=== PATIENT | male | born 1960 | race Caucasian/White ===

== ENCOUNTER 2019-05-03 16:28 | Inpatient (IN) | payer OTHER ==
--- NOTE | 2019-05-02 22:05 | NUR ---
RN NOTES PATIENT WAS SEEN BY OIL PIT ATTENDANTDANIELLA. AWAITING ADMISSION ORDERS.
[~2019-05-03] VITALS: Ht 165.1 cm; Wt 76.7 kg
--- NOTE | 2019-05-03 19:40 | NUR ---
COLLAR CLOSER LOCKSTITCH NOTES PATIENT ARRIVED ON THE UNIT AT 1933 VIA AMBULANCE AND GURNEY DIRECT TRANSFER FROM [facility]. PATIENT IS MED SURG ACUITY. DIAGNOSED WITH LEFT THUMB OSTEOMYELITIS. PATIENT REPORTS PAIN 5/10 ON LEFT THUMB, PATIENT NOT ASKING FOR PAIN MEDICATION AT THIS TIME. VITALS UPON ADMISSION ARE: BP 137/83, PULSE 74, RESPIRATIONS 20, TEMP 97.9 F, O2 SAT 98% ON RA. PATIENT IS A/O X4, MAINLY FAROESE SPEAKING, CAN SPEAK A LITTLE LAO. PATIENT IS FULLY AMBULATORY. SAFETY PRECAUTIONS IMPLEMENTED; CALL LIGHT WITHIN REACH, BED LOWEST POSITION, BED LOCKED, SIDE RAILS UP X2. WILL CONTINUE TO MONITOR PATIENT. AWAITING ADMISSION ORDERS FROM DANIELLA ONEILL.
[2019-05-03 20:00] VITALS: BP 137/83
--- NOTE | 2019-05-03 21:06 | NUR ---
RN NOTES PICC LINE WAS INSERTED BY PICC LINE SPECIALIST. ACCORDING TO SPECIALIST WHO INSERTED: RIGHT BASILIC 38 CM. AC 26 CM. CHEST XRAY CONFIRMED CORRECT PLACEMENT.
--- NOTE | 2019-05-03 21:07 | NUR ---
RN NOTES PICC LINE CRIME INVESTIGATOR SPECIAL AGENT WAS YFN PERES RN.
[2019-05-03] MEDS ORDERED: LORAZEPAM INJ 2 MG/ML VIAL IV PRN (22:00)
[2019-05-03] MEDS ORDERED: DEXTROSE 50%-WATER 50 ML DISP.SYRIN IV PRN (22:00)
[2019-05-03] MEDS ORDERED: ZOLPIDEM TARTRATE 5 MG TABLET PO PRN (22:00)
[2019-05-03] MEDS ORDERED: Z GUARD REMEDY 2 OZ OINT TP PRN (22:00)
[2019-05-03] MEDS ORDERED: MAGNESIUM HYDROXIDE 30 ML UDC PO PRN (22:00)
[2019-05-03] MEDS ORDERED: ACETAMINOPHEN 325 MG TABLET PO PRN (22:00)
[2019-05-03] MEDS ORDERED: ONDANSETRON HCL/PF 4 MG/2 ML VIAL IVP PRN (22:00)
[2019-05-03] MEDS ORDERED: VANCOMYCIN HCL 1.25 GM in IV D5W 260 ML IV ONE (22:00)
[2019-05-03] MEDS ORDERED: MORPHINE SULFATE INJ 2 MG/ML DISP.SYRIN IV PRN (22:00)
[2019-05-03] MEDS ORDERED: HYDROCODONE/APAP 5/325MG 1 EACH TABLET PO PRN (22:00)
[2019-05-03] MEDS ORDERED: MAG HYDROX/AL HYDROX/SIMETH 30 ML UDC PO PRN (22:00)
--- NOTE | 2019-05-03 22:05 | NUR ---
RN NOTES PATIENT WAS SEEN BY ASSISTANT PRODUCERDANIELLA. AWAITING ADMISSION ORDERS.
--- NOTE | 2019-05-03 22:06 | NUR ---
RN NOTES DISREGARD DOCUMENTATION FOR 05/02 2205. WRONG DATE INPUT.
[2019-05-03] MEDS: BLOOD SUGAR DIAGNOSTIC 1 EACH STRIP IN SCH (22:29)
[2019-05-03] MEDS: IV NS 0.9% 1,000 ML IV PRN (22:34)
[2019-05-03] MEDS: INSULIN REGULAR, HUMAN 100 UNIT/ML 3 ML VIAL SQ PRN (22:47)
[2019-05-03] MEDS ORDERED: VANCOMYCIN 1.75 GM in IV NS 0.9% 500 ML IV ONE (23:00)
[2019-05-03] MEDS ORDERED: VANCOMYCIN 1 GM VIAL ONE (23:06)
--- NOTE | 2019-05-03 23:10 | NUR ---
RN NOTES VANCO TO BE ADMINISTERED. VERIFIED WITH CHARGE NURSE, ADELINA, TO GIVE. CHARGE NURSE STATES TO ADMINISTER ALTHOUGH THERE IS NO VANCO TROUGH AT THIS TIME.
[2019-05-03] MEDS ORDERED: METF-440 PO (23:27)
[2019-05-03] MEDS ORDERED: LISI10TA5 PO (23:27)
[2019-05-03] MEDS ORDERED: ATOR40TA PO (23:28)
[2019-05-04] VITALS: BP 149/72
[2019-05-04 04:00] VITALS: BP 156/83
--- NOTE | 2019-05-04 06:36 | NUR ---
RN CLOSING NOTES PATIENT REMAINS STABLE. PATIENT IS CURRENTLY AWAKE, RESTING COMFORTABLY IN BED. PATIENT IS A/OX 4, ABLE TO STATE NEEDS. PATIENT REMAINS ON RA, SATTING WELL. NO SIGNS OF RESPIRATORY DISTRESS. DENIES SOB. PATIENT IS AFEBRILE. PATIENT IS ASYMPTOMATIC. PATIENT DID NOT ASK FOR PAIN MEDICATION THROUGHOUT THE SHIFT. IV SITES: LAC #20 AND GEMA PICC LINE INTACT, PATENT, FLUSHED, NO REDNESS, NO INFILTRATION. PATIENT FULLY AMBULATORY. SAFETY PRECAUTIONS IMPLEMENTED; CALL LIGHT WITHIN REACH, BED LOWEST POSITION, BED LOCKED, SIDE RAILS UP X2. WILL ENDORSE TO DAY RN FOR CONTINUITY OF CARE.
[2019-05-04 06:55] LABS: BASOPHILS # (AUTO) 0.1 /CMM (0.0-0.2); BASOPHILS % (AUTO) 1.1 % (0.0-2.0); EOSINOPHILS % (AUTO) 1.5 % (0.0-6.0); HEMATOCRIT 41 % (39-51); HEMOGLOBIN 13.8 g/dL (13.5-17.5); LYMPHOCYTES # (AUTO) 1.9 /CMM (0.8-4.8); LYMPHOCYTES % (AUTO) 26.4 % (20.0-44.0); MEAN CORPUSCULAR HGB CONC 34 g/dl (31.0-36.0); MEAN CORPUSCULAR VOLUME 87 fL (80-96); MONOCYTES # (AUTO) 0.5 /CMM (0.1-1.30); MONOCYTES % (AUTO) 6.4 % (2.0-12.0); NEUTROPHILS # (AUTO) 4.7 /CMM (1.8-8.9); NEUTROPHILS % (AUTO) 64.6 % (43.0-81.0); PLATELET COUNT (AUTO) 165 /CMM (150-450); RED BLOOD CELL COUNT(AUTO) 4.67 MIL/uL (4.5-6.0); WHITE BLOOD COUNT (AUTO) 7.3 K/uL (4.3-11.0)
[2019-05-04 07:00] LABS: ALANINE AMINOTRANSFERASE 18 U/L (12-78); ALBUMIN 3.3 g/dL (3.4-5.0); ALKALINE PHOSPHATASE 51 U/L (46-116); ASPARTATE AMINOTRANSFERASE 13 U/L (15-37); BILIRUBIN,TOTAL 0.4 mg/dL (0.2-1.0); CALCIUM, SERUM 8.3 mg/dL (8.5-10.1); CARBON DIOXIDE 25 mmol/L (21-32); CHLORIDE 103 mmol/L (98-107); CREATININE 0.7 mg/dL (0.6-1.3); GLUCOSE 196 mg/dL (74-106); MAGNESIUM 1.6 mg/dL (1.8-2.4); PHOSPHORUS 3.1 mg/dL (2.5-4.9); POTASSIUM 4.2 mmol/L (3.5-5.1); SODIUM SERUM 138 mmol/L (136-145); TOTAL PROTEIN, SERUM 6.4 g/dL (6.4-8.2); UREA NITROGEN, BLOOD 15 mg/dL (7-18)
[2019-05-04 07:06] LABS: CHOLESTEROL 152 mg/dL (<200); HDL CHOLESTEROL 41 mg/dL (40-60); LDL 97 mg/dL (0-99); THYROID STIMULATING HORMONE 3.364 uIU/mL (0.358-3.74); TRIGLYCERIDES 92 mg/dL (30-150)
--- NOTE | 2019-05-04 07:34 | NUR ---
RN OPENING NOTES RECEIVED PATIENT RESTING IN BED COMFORTABLY, AWAKE. HE IS AO X4, VERBAL AND AMBULATORY. HE IS ON RA, SHOWS NO S/SX OF RESP DISTRESS OR SOB. HE IS ON A CONSISTENT CARB DIET. HE HAS A LAC 20 G AND GEMA PICC, INTACT. ACHS. SAFETY MEASURES HAVE BEEN IMPLEMENTED, CALL LIGHT WITHIN REACH, BED IN LOW AND LOCKED POSITION, SIDE RAILS UP X2, WILL CONTINUE TO MONITOR FOR ANY CHANGES.
[2019-05-04 07:50] LABS: C-REACTIVE PROTEIN < 0.2 mg/dL (0.0-0.9)
[2019-05-04 08:00] VITALS: BP 138/88
[2019-05-04] MEDS: BLOOD SUGAR DIAGNOSTIC 1 EACH STRIP IN SCH ×4 (08:04→21:10)
[2019-05-04] MEDS: INSULIN REGULAR, HUMAN 100 UNIT/ML 3 ML VIAL SQ PRN ×4 (08:14→21:25)
[2019-05-04] MEDS: LISINOPRIL (10MG) 10 MG TABLET PO SCH (08:15)
[2019-05-04] MEDS: NICOTINE PATCH (14MG) 14 MG PATCH.TD24 TD SCH ×2 (08:15→09:00)
--- NOTE | 2019-05-04 09:00 | NUR ---
PATIENT REFUSED NICOTINE PATCH
[2019-05-04] MEDS: Magnesium 1GM/D5W 100ML PREMIX 100 ML IV SCH ×2 (12:26→13:23)
[2019-05-04] MEDS ORDERED: FEE PK DOSING 1 MIN EA MC ONE (13:07)
[2019-05-04] MEDS: VANCOMYCIN 1 GM in IV D5W 250 ML IV SCH ×2 (13:23→20:56)
[2019-05-04] MEDS: IV NS 0.9% 1,000 ML IV PRN (13:25)
[2019-05-04] MEDS: CEFTRIAXONE 2 G in IV D5W 100 ML IV SCH (14:35)
[2019-05-04 16:00] VITALS: BP 132/79
--- NOTE | 2019-05-04 18:54 | NUR ---
RN CLOSING NOTES PATIENT IS RESTING IN BED COMFORTABLY, DENIES ANY PAIN OR DISTRESS AT THIS TIME. HE IS AOX4 ON RA, SHOWS NO S/SX OR RESP DISTRESS OR SOB. HE IS AMBULATORY WITH SKIN INTACT. HE IS ON A CONSISTENT CARB DIET, ACCU-CHECK ACHS. HE HAS A LAC 20 G AND A GEMA PICC, PATENT AND INTACT. MAGNESIUM WAS REPLACED. PATIENT'S NEEDS HAVE BEEN MET. SAFETY MEASURES HAVE BEEN IMPLEMENTED, CALL LIGHT WITHIN REACH, BED IN LOWEST AND LOCKED POSITION, SIDE RAILS UP X2. PATIENT WILL BE ENDORSED TO NIGHTSHIFT NURSE.
--- NOTE | 2019-05-04 19:00 | NUR ---
MS RN OPENING NOTES Received patient in bed, watching TV. Alert, oriented x 4. Breathing even and unlabored. Not in any distress, on room air. No complaints of pain or discomfort at this time. Peripheral IV infusing at 75mL/hr. Safety measures in place, call light within reach, bed in low, locked position. Will continue to monitor accordingly
[2019-05-04 20:00] VITALS: BP 139/83
[2019-05-04] MEDS: ATORVASTATIN 40 MG TABLET PO SCH (21:03)
--- NOTE | 2019-05-04 21:26 | NUR ---
RN NOTES BSL- 203 mg/dL. 4 units of insulin given per sliding scale. Snacks provided
[2019-05-05 04:00] VITALS: BP 129/68
[2019-05-05 04:27] LABS: BASOPHILS # (AUTO) 0.1 /CMM (0.0-0.2); BASOPHILS % (AUTO) 0.9 % (0.0-2.0); EOSINOPHILS % (AUTO) 2.6 % (0.0-6.0); HEMATOCRIT 40 % (39-51); HEMOGLOBIN 13.5 g/dL (13.5-17.5); LYMPHOCYTES # (AUTO) 2.1 /CMM (0.8-4.8); MEAN CORPUSCULAR HGB CONC 34 g/dl (31.0-36.0); MEAN CORPUSCULAR VOLUME 87 fL (80-96); MONOCYTES # (AUTO) 0.5 /CMM (0.1-1.30); MONOCYTES % (AUTO) 7.8 % (2.0-12.0); NEUTROPHILS # (AUTO) 3.8 /CMM (1.8-8.9); NEUTROPHILS % (AUTO) 56.7 % (43.0-81.0); PLATELET COUNT (AUTO) 154 /CMM (150-450); RED BLOOD CELL COUNT(AUTO) 4.61 MIL/uL (4.5-6.0); WHITE BLOOD COUNT (AUTO) 6.6 K/uL (4.3-11.0)
[2019-05-05 04:38] LABS: CALCIUM, SERUM 8.1 mg/dL (8.5-10.1); CREATININE 0.8 mg/dL (0.6-1.3); MAGNESIUM 1.8 mg/dL (1.8-2.4); POTASSIUM 4.4 mmol/L (3.5-5.1)
[2019-05-05] MEDS: VANCOMYCIN 1 GM in IV D5W 250 ML IV SCH ×3 (05:04→21:05)
[2019-05-05] MEDS: IV NS 0.9% 1,000 ML IV PRN ×2 (06:07→22:55)
--- NOTE | 2019-05-05 06:43 | NUR ---
MS RN CLOSING NOTES Patient still sleeping in bed, easy to arouse. Breathing even and unlabored. Not in any distress. Stable on room air. Peripheral IV infusing at 75mL/hr. No acute changes overnight. Safety measures in place. Call light within reach, Bed in low, locked position. Will endorse AIDA to oncoming RN.
[2019-05-05 08:00] VITALS: BP 136/77
--- NOTE | 2019-05-05 08:00 | NUR ---
MS RN NOTES Received patient in bed, . Alert, oriented x 4. Breathing even and unlabored. Not in any distress, on room air. No complaints of pain or discomfort at this time. Peripheral IV infusing at 75mL/hr. Safety measures in place, call light within reach, bed in low, locked position. Will continue to monitor accordingly, rt upper arm picc line in place , bed in lowest and locked position , call .light with reach , plan of care discussed with patient
[2019-05-05] MEDS: LISINOPRIL (10MG) 10 MG TABLET PO SCH (08:28)
[2019-05-05] MEDS: NICOTINE PATCH (14MG) 14 MG PATCH.TD24 TD SCH (08:28)
[2019-05-05] MEDS: BLOOD SUGAR DIAGNOSTIC 1 EACH STRIP IN SCH ×4 (08:29→22:00)
[2019-05-05] MEDS: INSULIN REGULAR, HUMAN 100 UNIT/ML 3 ML VIAL SQ PRN ×4 (08:33→22:48)
--- NOTE | 2019-05-05 10:00 | NUR ---
MS RN NOTE CONT ON IVF ORDERED, NO C\O PAIN OR DISCOMFORT
--- NOTE | 2019-05-05 13:00 | NUR ---
MS RN OTE HAVING DINNER , FAMILY AT BEDSIDE NOT IN DISTRESS
[2019-05-05 14:00] VITALS: BP 139/81
[2019-05-05] MEDS: CEFTRIAXONE 2 G in IV D5W 100 ML IV SCH (14:12)
[2019-05-05 16:00] VITALS: BP 139/81
--- NOTE | 2019-05-05 16:00 | NUR ---
MS RN NOTE AMBULATED TO BR , KEEP CLEAN DRY , CALL LIGHT WITHIN REACH
[2019-05-05] MEDS: LACTOBACILLUS RHAMNOSUS GG 1 EACH CAP.SPRINK PO SCH (16:32)
--- NOTE | 2019-05-05 19:11 | NUR ---
MS RN NOTE ALL NEEDS ATTENDED ,ON IVF ,NO SOB NOTED ,NO C\O DISCOMFORT, WILL CONT TO MONITOR CLOSELY
[2019-05-05 20:00] VITALS: BP 130/84
[2019-05-05] MEDS: ATORVASTATIN 40 MG TABLET PO SCH (22:06)
[2019-05-06 04:00] VITALS: BP 134/83
[2019-05-06] MEDS: VANCOMYCIN 1 GM in IV D5W 250 ML IV SCH ×2 (04:56→12:37)
[2019-05-06] MEDS: BLOOD SUGAR DIAGNOSTIC 1 EACH STRIP IN SCH ×2 (06:41→11:50)
[2019-05-06] MEDS: INSULIN REGULAR, HUMAN 100 UNIT/ML 3 ML VIAL SQ PRN ×2 (06:45→11:52)
--- NOTE | 2019-05-06 07:15 | NUR ---
RN INITIAL NOTE PATIENT IN BED, ASLEEP BUT EASILY AROUSABLE. ALERT AND ORIENTED X4. HAS A LEFT THUMB OSTEOMYELITIS. AMBULATORY, STEADY GAIT. LAST BM THIS AM. HAS A RIGHT UA PICC WITH NS AT 75 ML/HR. NO COMPLAINS OF ANY PAIN NOR SOB AT THIS TIME. BED LOCKED AND IN LOWEST POSITION. CALL LIGHT WITHIN REACH. WILL CONT TO MONITOR
[2019-05-06 08:00] VITALS: BP 137/78
[2019-05-06] MEDS: LISINOPRIL (10MG) 10 MG TABLET PO SCH (08:35)
--- NOTE | 2019-05-06 08:36 | NUR ---
RN NOTE PRINIVIL NOT ADMINISTERED DUE TO SBP OF 90
[2019-05-06] MEDS: NICOTINE PATCH (14MG) 14 MG PATCH.TD24 TD SCH (08:38)
[2019-05-06] MEDS: LACTOBACILLUS RHAMNOSUS GG 1 EACH CAP.SPRINK PO SCH (08:38)
[2019-05-06 12:00] VITALS: BP 137/78
[2019-05-06] MEDS ORDERED: CEFT2FRO2 IV (14:14)
[2019-05-06] MEDS ORDERED: METF-442 PO (14:14)
[2019-05-06] MEDS ORDERED: RXVAN XX (14:14)
[2019-05-06] MEDS ORDERED: VANC1PLA9 IV (14:14)
[2019-05-06] MEDS ORDERED: CEFTRIAXONE 1 G in IV D5W 50 ML IV SCH (15:00)
--- NOTE | 2019-05-06 16:00 | NUR ---
SUPERVISOR ELECTRON TUBE PROCESSING NOTE PATIENT LEFT AMBULATORY, STEADY GAIT. EXIT CARE GIVEN. EDUCATED ABOUT GETTING A PRIMARY DOCTOR TO SEE AFTER BEING DISCHARGED. PICC LINE INTACT, ANTONIO ADAME [facility] WILL BE SEEING THE PATIENT FOR ANBX TX. ANTONIO ADAME TALKED TO THE PATIENT REGARDING BRINGING ALL THE MEDS TODAY AND WILL BE STARTING TX TOMORROW MORNING. PATIENT'S SKIN INTACT, NO WOUND PHOTOS TAKEN. BELONGINGS LIST SIGNED AND IN THE CHART. ALL MEDS FROM PHARMACY WAS GIVEN BACK TO THE PATIENT. NEW PRESCRIPTION IN PATIENT'S DISCHARGE FOLDER. PATIENT LEFT WITH TAXI VOUCHER. VSS, NO COMPLAINS OF ANY PAIN NOR SOB WHEN LEAVING. PATIENT ALERT AND ORIENTED X4.
== END 2019-05-06 16:20 | disposition home health service (06) | DRG 383 ==
LOC: MEDSG1 19:26
PROVIDERS: ADMIT Hospitalist; ATTEND Nurse Practitioner Acute Care
PROC: B548ZZA Ultrasonography of Superior Vena Cava, Guidance (ICD-10-PCS; principal; 2019-05-03)
PROC: 02HV33Z Insertion of Infusion Device into Superior Vena Cava, Percutaneous Approach (ICD-10-PCS; principal; 2019-05-03)
DX: L03.012 Cellulitis of left finger (principal); E11.69 Type 2 diabetes mellitus with other specified complication; E83.42 Hypomagnesemia; E11.65 Type 2 diabetes mellitus with hyperglycemia; M86.8X4 Other osteomyelitis, hand; E78.5 Hyperlipidemia, unspecified; I10 Essential (primary) hypertension; F17.210 Nicotine dependence, cigarettes, uncomplicated; F10.10 Alcohol abuse, uncomplicated; W26.0XXD Contact with knife, subsequent encounter
CPT/HCPCS: 36415; 36569; 71045-TC; 80048-TC; 80053-TC; 80061-TC; 80202-TC; 82962-TC; 83735-TC; 84100-TC; 84443-TC; 85025-TC; 85652-TC; 85730-TC; 86140-TC; 87081-TC; C1751; G0378; J0696; J1815; J3370; J3475; J7030; J7040; J7060

== ENCOUNTER 2019-06-21 10:23 | Emergency (ER) | payer OTHER ==
[~2019-06-21] VITALS: Ht 175.3 cm; Wt 72.6 kg
[~2019-06-21 10:23] MED LIST: ATOR40TA PO; CEFT2FRO2 IV; LISI10TA5 PO; METF-442 PO; RXVAN XX; VANC1PLA9 IV
--- NOTE | 2019-06-21 11:16 | NUR ---
GEMA PICC line removed; intact
[2019-06-21 11:23] VITALS: BP 145/79
== END 2019-06-21 11:24 | disposition home or self-care (01) ==
LOC: ER 10:27
DX: Z45.2 Encounter for adjustment and management of vascular access device (principal); E11.9 Type 2 diabetes mellitus without complications; F10.10 Alcohol abuse, uncomplicated; F17.200 Nicotine dependence, unspecified, uncomplicated; Y90.9 Presence of alcohol in blood, level not specified; Z71.6 Tobacco abuse counseling